=== PATIENT | male | born 1995 | race Caucasian/White ===

== ENCOUNTER 2022-09-21 19:42 | Emergency (ER) | payer OTHER ==
[2022-09-21 19:46] VITALS: BP 198/78; PULSE 81; RESP 18; TEMP 98; BMI 37.5
[2022-09-21] MEDS ORDERED: KETOROLAC TROMETHAMINE 30 MG/1 ML VIAL IM ONE (20:29)
[2022-09-21] MEDS ORDERED: LIDOCAINE 5% TOPICAL PATCH TP ONE (20:29)
[2022-09-21] MEDS ORDERED: ACETAMINOPHEN 325 MG TABLET (FP) PO ONE (20:29)
[2022-09-21] MEDS ORDERED: CYCLOBENZAPRINE HCL 10 MG TABLET (FP) PO SCH (20:30)
[2022-09-21] MEDS ORDERED: LIDOCAINE 5% TOPICAL PATCH ONE (20:31)
[2022-09-21] MEDS ORDERED: ACETAMINOPHEN 325 MG TABLET (FP) ONE (20:32)
[2022-09-21] MEDS ORDERED: KETOROLAC TROMETHAMINE 30 MG/1 ML VIAL ONE (20:32)
[2022-09-21] MEDS ORDERED: CYCLOBENZAPRINE HCL 10 MG TABLET (FP) ONE (20:32)
[2022-09-21] MEDS ORDERED: LIDOCAINE PATCH REMOVAL MC SCH (22:00)
== END 2022-09-21 20:56 | disposition home or self-care (01) ==
LOC: JERFT 19:42
PROC: 3E033GC Introduction of Other Therapeutic Substance into Peripheral Vein, Percutaneous Approach (ICD-10-PCS; principal; 2022-09-21)
DX: M54.2 Cervicalgia (principal); M25.511 Pain in right shoulder; V49.40XA Driver injured in collision with unspecified motor vehicles in traffic accident, initial encounter
CPT/HCPCS: 72050-TC-FY; 99284-25

== ENCOUNTER 2023-10-30 09:14 | Emergency (ER) | payer BC, OTHER ==
[2023-10-30] MEDS ORDERED: KETOROLAC TROMETHAMINE 60 MG/2 ML VIAL IM ONE (09:27)
[2023-10-30] MEDS ORDERED: hydrOXYzine PAMOATE 50 MG CAPSULE (FP) PO ONE (09:28)
[2023-10-30] MEDS ORDERED: KETOROLAC TROMETHAMINE 60 MG/2 ML VIAL ONE (09:34)
[2023-10-30] MEDS ORDERED: hydrOXYzine PAMOATE 25 MG CAPSULE (FP) PO ONE (09:34)
[2023-10-30 09:51] VITALS: BP 163/83; PULSE 87; RESP 18; TEMP 98.6; BMI 37.5
== END 2023-10-30 10:25 | disposition home or self-care (01) ==
LOC: FER 09:14
PROC: 3E0233Z Introduction of Anti-inflammatory into Muscle, Percutaneous Approach (ICD-10-PCS; principal; 2023-10-30)
DX: M54.50 Low back pain, unspecified (principal); S39.012A Strain of muscle, fascia and tendon of lower back, initial encounter; X50.1XXA Overexertion from prolonged static or awkward postures, initial encounter
CPT/HCPCS: 99284-25

== ENCOUNTER 2023-11-05 22:10 | Emergency (ER) | payer BC ==
[2023-11-05 22:20] VITALS: BP 183/87; PULSE 93; RESP 18; TEMP 97.3; BMI 37.5
[2023-11-05] MEDS ORDERED: methylPREDNISolone NA SUCC 125 MG/2 ML VIAL IVPUSH ONE (22:51)
[2023-11-05] MEDS ORDERED: diazePAM CARPU-JECT 10 MG/2 ML DISP.SYRIN IVPUSH ONE (22:52)
[2023-11-05] MEDS ORDERED: diazePAM CARPU-JECT 10 MG/2 ML DISP.SYRIN ONE (23:02)
[2023-11-05] MEDS ORDERED: methylPREDNISolone NA SUCC 125 MG/2 ML VIAL ONE (23:03)
== END 2023-11-06 04:12 | disposition home or self-care (01) ==
LOC: JER 22:10
PROC: 3E033GC Introduction of Other Therapeutic Substance into Peripheral Vein, Percutaneous Approach (ICD-10-PCS; principal; 2023-11-05)
PROC: 3E033GC Introduction of Other Therapeutic Substance into Peripheral Vein, Percutaneous Approach (ICD-10-PCS; 2023-11-05)
DX: M54.41 Lumbago with sciatica, right side (principal); W18.40XA Slipping, tripping and stumbling without falling, unspecified, initial encounter
CPT/HCPCS: 72131-TC; 72192-TC; 82962; 93005; 93010; 99284-25